=== PATIENT | male | born 2000 | race Caucasian/White ===

== ENCOUNTER → 2019-07-20 | Outpatient (CLI) | payer OTHER ==
--- NOTE | 2019-07-20 09:58 | US ---
EXAM DESCRIPTION: Testicular: Ultrasound. CLINICAL HISTORY: 19 years Male testicular pain COMPARISON: None. TECHNIQUE: Transcutaneous scanning ; marcelo-scale and Doppler modes. FINDINGS: Dimensions of the right testicle are 4.2 x 3.2 x 2.5 cm, with normal echogenicity and normal color Doppler flow. Epididymal head measures 10 x 7.3 x 6.6 mm, with normal echogenicity and normal color Doppler flow. Minimal scrotal wall thickening. No Hydrocele. Dimensions of the left testicle are 4.2 x 2.8 x 2.4 cm, with normal echogenicity and normal color Doppler flow. Epididymal head measures 9 x 6.2 x 5.5 mm, with normal echogenicity and normal color Doppler flow. Minimal scrotal wall thickening. No Hydrocele. IMPRESSION: Minimal scrotal wall thickening bilaterally. Normal sonography of the epididymides and testicles bilaterally. No hydroceles. Electronically signed by: Francisco Macias MD 07/20/2019 9:56 AM [employer] A[employer]LY[employer]
== END ==
LOC: US 08:34
PROVIDERS: ATTEND Family Medicine
DX: N49.2 Inflammatory disorders of scrotum (principal)